=== PATIENT | male | born 1940 | race Caucasian/White ===

== ENCOUNTER 2017-09-25 16:42 | Emergency (ER) | payer MEDICARE ==
[~2017-09-25] VITALS: Wt 135.6 kg
[~2017-09-25 16:42] MED LIST: AMARYL1 MG PO; ASPIRIN81 MG PO; CORDROL20 MG PO; DOXAZOSIN4 MG PO; FLUTICASON0.05 MG/A1 NS; KEFLEX500 MG PO; LOSARTAN POTASS25 M1 PO; MEDROL DOSEPAK4 MG PO; METOPROLOL SR25 MG PO; OMEPRAZOLE20 MG PO; SYNTHROID,LEVO50 MCG PO; TRAMADOL50 MG PO; VICODIN 5/500 505 MG PO
[2017-09-25] MEDS ORDERED: MEDROL DOSEPAK4 MG PO (17:29)
== END 2017-09-25 17:42 | disposition home or self-care (01) ==
LOC: ED 16:42
DX: M10.9 Gout, unspecified (principal); Z79.899 Other long term (current) drug therapy; Z88.8 Allergy status to other drugs, medicaments and biological substances; Z79.82 Long term (current) use of aspirin